=== PATIENT | female | born 1995 | race African-American/Black ===

== ENCOUNTER 2019-07-21 13:41 | Emergency (ER) | payer OTHER, SELFPAY ==
--- NOTE | 2019-07-21 14:00 | ED.FEMALEGU ---
HPI - Female Genitourinary General Chief complaint: Urogenital-Female Stated complaint: urinary pain Time Seen by Provider: 07/21/19 14:01 Source: patient Mode of arrival: ambulatory Limitations: no limitations History of Present Illness HPI Narrative: Irma Rowley is a 23 yo female with no PMH that comes to express care for dysuria and unprotected sex recently Related Data Allergies Allergy/AdvReac Type Severity Reaction Status Date / Time No Known Allergies Allergy Verified 07/21/19 14:03 Review of Systems Review of Systems: Narrative: CONSTITUTIONAL: Denies fever, chills, sweats. EYES: Denies visual changes, redness, discharge. ENT: Denies rhinorrhea, congestion, sore throat, otalgia. CARDIOVASCULAR: Denies chest pain, palpitations, edema. RESPIRATORY: Denies dyspnea, wheezing, cough GASTROINTESTINAL: Denies abdominal pain, nausea, vomiting, diarrhea. GENITOURINARY: Denies dysuria, hematuria, abnormal discharge; no abdominal pain, recent unprotected sex SKIN: Denies rash or itching. NEUROLOGIC: Denies numbness, or focal weakness. PSYCHIATRIC: Denies anxiety or depression. [facility] Family History Family History Other No active medical problems Social History Social History Smoking status: Current every day smoker Alcohol intake: current Comments At time of signature, I agree with nursing past medical, surgical, social and family history. There is no relevant family history pertinent to the presenting complaint. Exam Narrative: Exam Narrative: GENERAL: This is a well-nourished, well-developed patient, in mild distress. afebrile, HEAD: normocephalic, atraumatic. EYES: Sclera clear/white. Vision is grossly intact. EARS: External ears normal, . Hearing grossly intact. NOSE: External nose normal with nasal discharge, nares without redness, has rhinorrhea. THROAT: Mucous membranes moist, posterior pharynx mild erythema NECK: Neck supple, non-tender CARDIOVASCULAR: Regular rate and rhythm without murmurs, gallops, or rubs. RESPIRATORY: Clear to auscultation. Breath sounds equal bilaterally. No wheezes, rales, or rhonchi. Occ dry cough GASTROINTESTINAL: Abdomen soft, non-tender, : No suprapubic discomfort, no CMT or adnexal tenderness; monitor mild greenish discharge in vaginal vault, no lesions within vault, labia appear normal SKIN: warm, intact with no suspicious lesions or rash, good texture and turgor. NEURO: awake, alert, and oriented to person, place and time. There were no obvious focal neurologic abnormalities. Steady gait EXTREMITIES: Normal range of motion. BACK: Nontender without deformity Course Course Emergency Course: UA and culture done; urine cultured for STDs Treated presumptively for STDs using Zithromax, Rocephin, flagyl, zofran Vital Signs Vital signs: Vital Signs Temperature 97.7 F 07/21/19 14:03 Pulse Rate 115 H 07/21/19 14:03 Respiratory Rate 18 07/21/19 14:03 Blood Pressure 116/75 07/21/19 14:03 Pulse Oximetry 99 07/21/19 14:03 Temperature 97.7 F 07/21/19 14:03 Pulse Rate 115 H 07/21/19 14:03 Respiratory Rate 18 07/21/19 14:03 Blood Pressure 116/75 07/21/19 14:03 Pulse Oximetry 99 07/21/19 14:03 MDM - Female Genitourinary Differential Diagnosis Differential diagnosis: Likely urinary tract infection, bacterial vaginosis, trichomoniasis and other Lab Data Labs: Urine Glucose Negative Reference Range: Negative Urine Bilirubin Negative Reference Range: Negative Urine Ketone Negative Reference Range: Negative Urine Specific [place] 1.020 Reference Range:1.001-1.035 Urine Blood Trace Reference Range: Negative * * Urine pH 7.0 Reference Ran
[2019-07-21 14:03] VITALS: BP 116/75; PULSE 115; RESP 18; TEMP 36.5; O2SAT 99
[2019-07-21] MEDS: cefTRIAXone 250 MG VIAL IM (14:34)
== END 2019-07-21 15:07 | disposition home or self-care (01) ==
PROVIDERS: Emergency Provider Nurse Practitioner
DX: R30.0 Dysuria (principal); F17.200 Nicotine dependence, unspecified, uncomplicated
CPT/HCPCS: 81003; 87077; 87086; 87088; 87491; 87591; 87661; 96372; 99204; G0463; J0696

== ENCOUNTER 2020-01-05 19:22 | Emergency (ER) | payer OTHER, SELFPAY ==
--- NOTE | ~2020-01-05 | XR_ITS ---
EXAMINATION: XR finger 4th RT min 2V DATE: 01/05/2020 19:44 INDICATION: Right hand fourth digit injury and pain. TECHNIQUE: 3 views of right hand fourth digit were obtained. COMPARISON: None. FINDINGS: Bone alignment is normal. No fracture. Joint spaces are well maintained. IMPRESSION: 1. Normal right hand fourth digit. Reviewed, dictated and finalized at location A.
[2020-01-05 19:34] VITALS: BP 116/74; PULSE 96; RESP 18; TEMP 37.7; O2SAT 99
--- NOTE | 2020-01-05 19:46 | ED.UPPEXIN ---
HPI - Extremity Injury (Upper) General Chief Complaint: Extremity Injury, Upper Stated Complaint: riht 4th finer injury Time Seen by Provider: 01/05/20 19:43 Source: patient and RN notes reviewed Mode of arrival: ambulatory Limitations: no limitations History of Present Illness HPI narrative: Patient presents today complaining of an injury to her right fourth finger. She slammed it in a trunk door at 1600 this evening while at work. Reports numbness and tingling in the tip. Currently rates her pain 8/10 and has tried no [id number] interventions prior to arrival. Pain increases with movement. MD complaint: injury to: right and finger Related Data Allergies Allergy/AdvReac Type Severity Reaction Status Date / Time No Known Allergies Allergy Verified 07/21/19 14:03 Review of Systems Review of Systems: Narrative: CONSTITUTIONAL: Denies body aches, fever, chills, or sweats. EYES: Denies visual changes, redness, or discharge. ENT: Denies rhinorrhea, congestion, sore throat, or otalgia. CARDIOVASCULAR: Denies chest pain, palpitations, or edema. RESPIRATORY: Denies cough or dyspnea. GASTROINTESTINAL: Denies abdominal pain, nausea, vomiting, or diarrhea. GENITOURINARY: Denies dysuria or hematuria. SKIN: Denies rash, itching, or wounds. MUSCULOSKELETAL: Denies back pain, or myalgia. + Right finger injury NEUROLOGIC: Denies headache, numbness, tingling, or weakness. PSYCH: Denies depression or anxiety. [facility] Social History Social History Smoking status: Current every day smoker Alcohol intake: current Gender identity (if verbalized by the patient): Female Comments At time of signature, I have reviewed and agree with nursing past medical, surgical, social and family history unless otherwise noted. Please see nursing chart for further information. There is no relevant family history pertinent to the presenting complaint Exam Narrative: Exam Narrative: GENERAL: Well-appearing, well-nourished, and in no acute distress. HEAD: Normocephalic, atraumatic. EYES: EOMI. No redness or drainage. Conjunctivae normal. ENT: Mucous membranes pink and moist. NECK: Normal AROM. CHEST: No respiratory distress. EXTREMITIES: Normal range of motion. No edema. Tenderness at the DIP and distal phalanx of the right fourth finger. No edema, ecchymosis, or erythema noted. No subungual hematoma noted. Distal sensation intact. Capillary refill normal. Full range of motion of the finger noted. SKIN: Warm, dry, no rash. Capillary refill normal. Normal skin turgor. NEURO: No focal deficits. Alert and oriented x3. Gait steady. PSYCH: Normal affect. No signs of depression or anxiety. Course Vital Signs Vital signs: Vital Signs Temperature 99.8 F H 01/05/20 19:34 Pulse Rate 96 01/05/20 19:34 Respiratory Rate 18 01/05/20 19:34 Blood Pressure 116/74 01/05/20 19:34 Pulse Oximetry 99 01/05/20 19:34 Temperature 99.8 F H 01/05/20 19:34 Pulse Rate 96 01/05/20 19:34 Respiratory Rate 18 01/05/20 19:34 Blood Pressure 116/74 01/05/20 19:34 Pulse Oximetry 99 01/05/20 19:34 Reviewed MDM - Extremity Injury (Upper) Differential Diagnosis Differential diagnosis: Likely other (Finger fracture, contusion, pain) Imaging Data Radiologist's impression: ITS Impressions Finger X-Ray 01/05/20 19:46 IMPRESSION: 1. Normal right hand fourth digit. Critical Care Time Critical Care Time Critical Care Time: No Discharge Plan Discharge Clinical Impression: Contusion of finger of right hand Qualifiers: Encounter type: initial encounter Finger: ring finger Damage to nail status: without damage Qualified Code(s): S60.041A - Contusion of right ring finger without damage to nail, initial encounter Patient Disposition: Home, Self-Care Condition: Stable Instructions: Contusion in Adults (ED) Additional Instructions: Your x-ray is ne
== END 2020-01-05 19:50 | disposition home or self-care (01) ==
PROVIDERS: Emergency Provider Nurse Practitioner
DX: S60.041A Contusion of right ring finger without damage to nail, initial encounter (principal); W23.0XXA Caught, crushed, jammed, or pinched between moving objects, initial encounter; F17.200 Nicotine dependence, unspecified, uncomplicated
CPT/HCPCS: 73140; 99213; G0463